=== PATIENT | female | born 1980 | race Two or more races ===

== ENCOUNTER 2018-12-14 16:04 | Emergency (ER) | payer BC ==
[~2018-12-14] VITALS: Ht 157.5 cm; Wt 79.4 kg
[2018-12-14 16:06] VITALS: BP 131/90
[2018-12-14] MEDS ORDERED: IBUPROFEN 600 MG TABLET PO ONE ×2 (16:30→16:37)
== END 2018-12-14 18:05 | disposition home or self-care (01) ==
LOC: ER 16:09
DX: R05 Cough (principal); R07.89 Other chest pain; Z87.442 Personal history of urinary calculi
CPT/HCPCS: 36415; 71045-TC; 84484-TC